=== PATIENT | female | born 1970 | race Caucasian/White ===

== ENCOUNTER 2020-02-27 00:59 | Emergency (ER) | payer BC ==
[~2020-02-27] VITALS: Ht 154.9 cm; Wt 89.0 kg
[2020-02-27 02:06] LABS: HEMATOCRIT 39.2 % (37.0-47.0); HEMOGLOBIN 13.6 g/dl (12.0-16.0); IMMATURE GRANULOCYTES 0.4 % (0.0-5.0); MEAN CELL VOLUME 90.7 fL CALC (80.0-100.0); MEAN CORPUSCULAR HGB 31.5 pG CALC (26.0-32.0); MEAN CORPUSCULAR HGB CONC 34.7 g/dL CAL (32.0-36.0); NEUT# 9.32 thou/uL (2.00-7.15); RED BLOOD COUNT 4.32 mill/uL (4.20-5.60); RED CELL DISTRI WIDTH 12.1 % (11.5-15.5)
[2020-02-27 02:33] LABS: ALBUMIN 4.6 g/dL (3.2-5.0); ALKALINE PHOSPHATASE 70 u/l (38-126); AMYLASE 42 u/l (30-110); ANION GAP 13 (6-22 (CALC)); BILIRUBIN, TOTAL 0.3 mg/dL (0.0-1.4); BUN 18 mg/dL (7-17); BUN/CREATININE RATIO 27 (12-20 (CALC)); CARBON DIOXIDE 21 mmol/l (22-30); CHLORIDE 105 mmol/l (95-108); CREATININE 0.7 mg/dL (0.5-1.0); GFR > 60 ML/MIN (>=60 (CALC)); GFR FOR AFR.AMER. > 60 ML/MIN (>=60 (CALC)); LIPASE 71 u/l (23-300); POTASSIUM 3.8 mmol/l (3.5-5.1); SGOT/AST 21 u/l (14-36); SODIUM 136 mmol/l (137-146); TOTAL PROTEIN 7.5 g/dL (6.3-8.2)
[2020-02-27 02:43] LABS: ACT PARTIAL THROMBO TIME 25.7 SECONDS (20.0-32.5); D-DIMER 0.3 mg/L (0.19-0.60); PROTHROMBIN TIME 9.9 SECONDS (9.0-12.5)
[2020-02-27 02:45] LABS: MYOGLOBIN 32 ng/mL (0 - 62)
[2020-02-27 03:10] VITALS: BP 127/71
[2020-02-27] MEDS ORDERED: PROTONIX40 MG PO (03:27)
== END 2020-02-27 03:18 | disposition home or self-care (01) | DRG 392 ==
LOC: ED 00:59
PROVIDERS: Family Medicine
DX: K21.9 Gastro-esophageal reflux disease without esophagitis (principal); T47.1X6A Underdosing of other antacids and anti-gastric-secretion drugs, initial encounter; Z91.128 Patient's intentional underdosing of medication regimen for other reason

== ENCOUNTER 2021-10-27 23:05 | Emergency (ER) | payer BC ==
[~2021-10-27] VITALS: Ht 154.9 cm; Wt 86.0 kg
[~2021-10-27 23:05] MED LIST: PROTONIX40 MG PO
[2021-10-28 00:15] VITALS: BP 136/80
[2021-10-28] MEDS ORDERED: KEFLEX500 MG PO (00:35)
[2021-10-28 00:45] VITALS: BP 136/80
== END 2021-10-28 00:47 | disposition home or self-care (01) | DRG 603 ==
LOC: ED 23:05
DX: L03.011 Cellulitis of right finger (principal); K21.9 Gastro-esophageal reflux disease without esophagitis